=== PATIENT | female | born 1965 | race Caucasian/White ===

== ENCOUNTER 2021-07-31 19:55 | Emergency (ER) | payer OTHER ==
[~2021-07-31] VITALS: Ht 162.6 cm; Wt 49.9 kg
[2021-07-31 19:56] VITALS: BP 125/92
== END 2021-07-31 20:23 | disposition left against medical advice (07) ==
LOC: M.ERS 19:55
DX: M54.50 Low back pain, unspecified (principal); G89.29 Other chronic pain; Z53.29 Procedure and treatment not carried out because of patient's decision for other reasons